=== PATIENT | male | born 1955 | race Caucasian/White ===

== ENCOUNTER 2020-11-22 10:19 | Outpatient (CLI) | payer MEDICARE ==
[2020-11-22 11:49] LABS: Hemoglobin 16.8 g/dL (13.5-17.5); Mean Corpuscular HGB CONC 33.7 g/dL (32.0-36.0); Mean Corpuscular Hemoglobin 31.5 pg (27.0-33.0); Mean Corpuscular Volume 93.3 fl (81.2-95.1); Mean Platelet Volume 8.8 fl (7.4-10.4); Platelet Count 283 10x3/uL (150-450); RBC Distribution Width 12.5 % (11.5-14.5); Red Blood Cell (RBC) Count 5.34 10x6/uL (4.32-5.72); White Blood Cell (WBC) Count 7.2 10x3/uL (3.5-10.5)
[2020-11-22 12:07] LABS: Anion Gap 16 mmol/L (10-20); BUN (Urea Nitrogen) 17 mg/dL (8.4-25.7); Calc. Creatinine Clearance 0 mL/min (70-130); Calcium 9.4 mg/dL (7.8-10.44); Carbon Dioxide 23 mmol/L (23-31); Chloride 106 mmol/L (98-107); Glucose 110 mg/dL (80-115); Potassium 4.3 mmol/L (3.5-5.1); Sodium 141 mmol/L (136-145)
[2020-11-22 17:58] LABS: SARS-CoV-2 PCR by NAA Not Detected (NotDetected)
== END 2020-11-22 10:20 | disposition home or self-care (01) ==
LOC: CSHLAB 10:19
PROVIDERS: ATTEND Surgery
DX: Z01.818 Encounter for other preprocedural examination (principal); Z20.822 Contact with and (suspected) exposure to COVID-19; K42.9 Umbilical hernia without obstruction or gangrene
CPT/HCPCS: 80048; 85027; 87635; 93005; 93010; U0003; U0005

== ENCOUNTER 2020-11-27 06:58 | Day surgery (SDC) | payer MEDICARE, BC ==
[2020-11-26 12:03] VITALS: BMI 31.6
[2020-11-27] MEDS ORDERED: EPINEPHrine 1 MG/ML AMP ONE (07:07)
[2020-11-27] MEDS ORDERED: Bupivacaine PF 0.5% 30 ML VIAL ONE (07:07)
[2020-11-27] MEDS ORDERED: Lidocaine 1% MPF 2 ML VIAL ONE (07:53)
[2020-11-27] MEDS ORDERED: Fentanyl 100 MCG/2 ML VIAL ONE (08:50)
[2020-11-27] MEDS ORDERED: PROPOFOL 20 ML ONE (08:50)
[2020-11-27] MEDS ORDERED: Rocuronium Bromide 10 MG/ML (10ML VIAL) ONE (08:51)
[2020-11-27] MEDS ORDERED: Dexamethasone 20 MG/5 ML VIAL ONE (08:51)
[2020-11-27] MEDS ORDERED: Midazolam HCl 2 mg/2 ml Vial ONE (08:51)
[2020-11-27] MEDS ORDERED: Ondansetron PF 4 MG/2 ML Vial ONE (08:51)
[2020-11-27] MEDS ORDERED: Ketorolac Tromethamine 30 MG/ML VIAL ONE (08:51)
[2020-11-27] MEDS ORDERED: Glycopyrrolate 0.2 MG/ML 5 ML SYRINGE ONE (08:51)
[2020-11-27] MEDS ORDERED: HYDROcodone/Acetaminophen 5/325 mg Tablet PO PRN (08:56)
[2020-11-27] MEDS ORDERED: SUGAMMADEX SODIUM 500 MG/5 ML VIAL ONE (09:19)
== END 2020-11-27 11:00 | disposition home or self-care (01) ==
LOC: CSHSDC 06:58
PROVIDERS: ATTEND Surgery
PROC: 0WQF0ZZ Repair Abdominal Wall, Open Approach (ICD-10-PCS; principal; 2020-11-27)
DX: K42.9 Umbilical hernia without obstruction or gangrene (principal)
CPT/HCPCS: J0171; J0690; J1100; J1885; J2250; J2405; J2704; J3010; S0020